=== PATIENT | male | born 1965 | race Caucasian/White ===

== ENCOUNTER 2021-01-04 19:58 | Emergency (ER) | payer MEDICAID ==
[~2021-01-04] VITALS: Ht 162.6 cm; Wt 91.0 kg
[2021-01-04] MEDS ORDERED: HYDROCODONE/ACETAMINOPHEN 5/325MG TABLET PO ONE (21:30)
[2021-01-04] MEDS ORDERED: LIDOCAINE HCL/PF 1% 10 MG/ML 5ML VIAL INFIL ONE (22:30)
[2021-01-04] MEDS ORDERED: MORPHINE SULFATE 4 MG/ML CPJ (NOT FOR IM USE) IV ONE (22:30)
[2021-01-04] MEDS ORDERED: MORPHINE SULFATE 2 MG/ML CPJ (NOT FOR IM USE) IV NR (22:45)
[2021-01-04] MEDS ORDERED: PROPOFOL 200MG/20ML VIAL IV ONE (23:00)
[2021-01-05] MEDS ORDERED: HYDR-4001 MT (01:06)
[2021-01-05 01:10] VITALS: BP 126/74
== END 2021-01-05 01:25 | disposition home or self-care (01) ==
LOC: ER 19:58
DX: S52.592A Other fractures of lower end of left radius, initial encounter for closed fracture (principal); W22.8XXA Striking against or struck by other objects, initial encounter; Y93.89 Activity, other specified; Y92.89 Other specified places as the place of occurrence of the external cause; Y99.8 Other external cause status
CPT/HCPCS: 24650; 73090; 73100; 99152; 99285; J2704; J3490; J2270